=== PATIENT | male | born 1975 | race Caucasian/White ===

== ENCOUNTER 2020-06-17 10:42 | Emergency (ER) | payer OTHER ==
[~2020-06-17 10:42] MED LIST: BACTRIM DS TAB1 EACH PO; BACTROBAN OINT22 GM EXT; CLEOCIN HCL300 MG PO; CLINDAMYCIN HC150 MG PO; IBUPROFEN800 MG PO; KEFLEX CAP 500500 MG PO; LORTAB 5-325 M1 EACH PO; NORCO 5-325 TA1 EACH PO; ZYVOX600 MG PO
[2020-06-17] MEDS ORDERED: BACTRIM DS TAB1 EACH PO (12:22)
[2020-06-17] MEDS ORDERED: BACTROBAN OINT22 GM EXT (12:22)
== END 2020-06-17 12:35 | disposition home or self-care (01) ==
LOC: ER1 10:42
DX: L02.415 Cutaneous abscess of right lower limb (principal)
CPT/HCPCS: 10060; 87070; 87205; 99283